=== PATIENT | female | born 1985 | race Two or more races ===

== ENCOUNTER 2024-04-29 19:42 | Emergency (ER) | payer OTHER ==
[~2024-04-29] VITALS: Ht 162.6 cm; Wt 91.4 kg
[2024-04-30] MEDS: SODIUM CHLORIDE 0.9% 1,000 ML IV ONE (00:05)
[2024-04-30 00:11] VITALS: BP 130/93; PULSE 85; RESP 18; TEMP 98; O2SAT 99
[2024-04-30] MEDS: PROCHLORPERAZINE EDISYLATE 5 MG/ML 2ML VIAL IV ONE (00:11)
[2024-04-30] MEDS: KETOROLAC TROMETH 30 MG/ML 1ML VIAL IV ONE (00:11)
--- NOTE | 2024-04-30 00:21 | ED.PDOC ---
HPI (NEURO) HPI Comments 30-year-old female presents to the ED chief complaint headache x5 days. Patient reports headache to posterior occipital aspect of her head. 8/10 on pain scale throbbing in nature. Related symptoms of right-sided facial numbness. She denies any known injury. Denies slurred speech, weakness, light sensitivity, vision changes, or worst headache of her life. Chief Complaint: Headache Time Seen by MD: 19:46 Primary Care Provider: "Out of the Area" Reviewed Notes: Nurses Notes, Medications, Allergies Information Source: Patient Mode of Arrival: Ambulatory Past Medical History PAST MEDICAL HISTORY: Denies Surgical History: Denies all surgeries ADULT HEALTH CLINICAL NURSE SPECIALIST History: No Pertinent ADULT HEALTH CLINICAL NURSE SPECIALIST History Family History Family History: Reviewed,noncontributory to illness Social History Smoker: Non-Smoker Alcohol: Denies ETOH Use Drugs: Denies Drug Use Constitutional: denies: chills, diaphoresis, fatigue, fever, malaise, sweats, weakness, others EENTM: denies: blurred vision, double vision, ear bleeding, ear discharge, ear drainage, ear pain, ear ringing, eye pain, eye redness, hearing loss, mouth pain, mouth swelling, nasal discharge, nose bleeding, nose congestion, nose pain, photophobia, tearing, throat pain, throat swelling, voice changes, others Respiratory: denies: cough, hemoptysis, orthopnea, SOB at rest, shortness of breath, SOB with excertion, stridor, wheezing, others Cardiovascular: denies: chest pain, dizzy spells, diaphoresis, Dyspnea on exe rtion, edema, irregular heart beat, left arm pain, lightheadedness, palpitations, PND, syncope, others Gastrointestinal: denies: abdomen distended, abdominal pain, blood streaked bowels, constipated, diarrhea, dysphagia, difficulty swallowing, hematemesis, melena, nausea, poor appetite, poor fluid intake, rectal bleeding, rectal pain, vomiting, others Neurological: reports: headache, right sided numbness; denies: dizziness, fainting, left sided numbness, left sided weakness, numbness, paresthesia, pre- existing deficit, right sided weakness, seizure, speech problems, tingling, tremors, weakness, others Musculoskeletal: denies: back pain, gout, joint pain, joint swelling, muscle pain, muscle stiffness, neck pain, others Integumetry: denies: bruises, change in color, change in hair/nails, dryness, laceration, lesions, lumps, rash, wounds, others Allergic/Immunocompromised: denies: Difficulty Healing, Frequent Infections, Hives, Itching, others Hematologic/Lymphatic: denies: anemia, blood clots, easy bleeding, easy bruising, swollen glands, others Endocrine: denies: excessive hunger, excessive sweating, excessive thirst, excessive urination, flushing, intolerance to cold, intolerance to heat, unex plained weight gain, unexplained weight loss, others Psychiatric: denies: anxiety, bipolar disorder, depression, hopeless, panic disorder, schizophrenia, sleepless, suicidal, others Physical Exam General Appearance: No Apparent Distress, Normal HEENT: Normal ENT Inspection, Pharynx Normal, TMs Normal Neck: Full Range of Motion, Non-Tender, Normal, Normal Inspection Respiratory: Chest Non-Tender, Lungs Clear, No Accessory Muscle Use, No Respiratory Distress, Normal Breath Sounds Cardiovascular: No Edema, No JVD, No Murmur, No Gallop, Normal Peripheral Pulses, Regular Rate/Rhythm Breast Exam: Deferred Gastrointestinal: No Organomegaly, Non Tender, No Pulsatile Mass, Normal Bowel Sounds, Soft Genitalia: Deferred Pelvic: Deferred Rectal: Deferred Extremities: Normal capillary refill, Normal inspection, Normal range of motion, Non-tender, No pedal edema Musculoskeletal : Apperance: Normal Neurologic: Alert, 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 Was a procedure done?: No Differential Diagnosis (SZ) CVA: TIA Headache: Cluster, Migraine, Sinusitis, Trigeminal Neuralgia X-Ray, Labs, Meds, VS Vital Signs Date Time Temp Pulse Resp B/P (MAP) Pulse Ox O2 Delivery O2 Flow Rate FiO2 04/30/24 00:11 98.0 85 18 130/93 (105) 99 98.0 04/30/24 00:11 85 18 99 Room Air 04/29/24 19:56 97.9 97 15 130/87 (101) 97 Current Medications Medications (Trade) Dose Ordered Sig/Jonel Route Start Time Stop Time Status Last Admin Sodium Chloride 1,000 ml @ 1,000 mls/hr Q1H ONCE IV 04/29/24 23:45 04/30/24 00:44 DC 04/30/24 00:05 X-Ray, Labs, Meds, VS Comment Included normal saline 1000 L bolus. Compazine 5 mg IV. Toradol 30 mg IV. After completion of fluids and medications patient rates pain 1/10 on pain scale denies any numbness or weakness at this time she is requesting discharge states she feels a lot better than what she did prior to coming in. Rest increase p.o. fluids with electrolytes. Advised to follow up with her PCP in 2-3 days as necessary if headaches continue consider referral to neurologist. Return precautions given patient indicates understanding agrees with discharge plan of care. Time of 1ST Reevaluation: 00:47 Reevaluation 1ST: Improved Patient Education/Counseling: Diagnosis, Treatment, Prognosis, Need For Follow Up Family Education/Counseling: Diagnosis, Treatment, Prognosis, Need For Follow Up Departure 1 Departure Time of Disposition: 00:47 Impression: Primary Impression: Headache Qualified Codes: G44.201 - Tension-type headache, unspecified, intractable Additional Impression: Medication refill Disposition: 01 HOME / SELF CARE / HOMELESS Condition: Stable e-Prescriptions Albuterol Sulfate (Albuterol Sulfate Hfa) 108 Mcg/Act Aer 108 MCG IN 6XD PRN for 30 Days, #1 AER Take 1-2 puffs every 4-6 hours as needed for cough, wheezing, or shortness breath. Prov: LUL DAS 04/30/24 Discharged With: Spouse Critical Care Note Critical Care Time?: No Stability Stability form required: LUL Benz Apr 30, 2024 00:21
[2024-04-30] MEDS ORDERED: ALBU108A5 IN (00:48)
== END 2024-04-30 00:59 | disposition home or self-care (01) ==
LOC: ER 19:42
DX: R51.9 Headache, unspecified (principal); R20.0 Anesthesia of skin; Z76.0 Encounter for issue of repeat prescription
CPT/HCPCS: 96360; 99283; J7030; J1885